=== PATIENT | male | born 1975 | race Caucasian/White ===

== ENCOUNTER 2020-04-21 14:58 | Emergency (ER) | payer BC ==
[~2020-04-21] VITALS: Ht 180.3 cm; Wt 98.4 kg
[2020-04-21 15:14] VITALS: Ht 180.3 cm; Wt 98.4 kg
== END 2020-04-21 15:49 | disposition home or self-care (01) ==
LOC: ED 14:58
DX: J32.9 Chronic sinusitis, unspecified (principal)